=== PATIENT | female | born 1945 | race Two or more races ===

== ENCOUNTER 2021-05-24 08:15 | Inpatient (IN) | payer OTHER ==
[~2021-05-24] VITALS: Ht 160 cm; Wt 78.9 kg
[2021-05-24] MEDS ORDERED: SYNTHROID88 MCG PO (10:23)
[2021-05-24] MEDS ORDERED: COZAAR50 MG PO (10:23)
[2021-05-24] MEDS ORDERED: HYDROCHLOROTH12.5 MG PO (10:24)
[2021-05-24] MEDS ORDERED: CYMBALT PO (10:24)
[2021-05-24] MEDS ORDERED: ZOLOFT PO (10:25)
[2021-05-24] MEDS ORDERED: GABAPENTIN PO (10:25)
[2021-05-30] MEDS ORDERED: REFRESH OPTIVE1 EAC2 (10:21)
[2021-05-30] MEDS ORDERED: DULOXETINE HCL60 MG (10:22)
[2021-05-30] MEDS ORDERED: GABAPENTIN800 M1 (10:22)
[2021-05-30] MEDS ORDERED: BUPROPION XL150 MG (10:22)
[2021-05-30] MEDS ORDERED: OPTIMAL D31250 MCG (10:22)
[2021-05-30] MEDS ORDERED: SERTRALINE HCL100 MG (10:23)
== END 2021-06-01 14:59 | DRG 470 ==
LOC: SURH 05-30 08:15 → O/R 05-30 09:45 → SURH 05-30 09:45
PROVIDERS: ADMIT Orthopaedic Surgery; ATTEND Orthopaedic Surgery
PROC: 0SRD0J9 Replacement of Left Knee Joint with Synthetic Substitute, Cemented, Open Approach (ICD-10-PCS; principal; 2021-05-30 12:00)
DX: M17.12 Unilateral primary osteoarthritis, left knee (principal); M85.662 Other cyst of bone, left lower leg; Z20.822 Contact with and (suspected) exposure to COVID-19